=== PATIENT | female | born 1990 | race Caucasian/White ===

== ENCOUNTER 2020-04-10 12:55 | Emergency (ER) | payer OTHER ==
[~2020-04-10] VITALS: Ht 167.6 cm; Wt 108.9 kg
[2020-04-10] MEDS ORDERED: BUSPIRONE HCL7.5 MG PO (13:31)
[2020-04-10] MEDS ORDERED: PREDNISONE 20 M20 MG PO (14:23)
[2020-04-10 15:26] VITALS: BP 158/107
== END 2020-04-10 15:34 | disposition home or self-care (01) ==
LOC: ER 12:55
DX: J02.0 Streptococcal pharyngitis (principal); Z79.899 Other long term (current) drug therapy; Z88.8 Allergy status to other drugs, medicaments and biological substances; Z91.018 Allergy to other foods; Z91.030 Bee allergy status

== ENCOUNTER 2020-05-15 14:35 | Emergency (ER) | payer OTHER ==
[~2020-05-15] VITALS: Ht 167.6 cm; Wt 105.2 kg
[~2020-05-15 14:35] MED LIST: BUSPIRONE HCL7.5 MG PO; PREDNISONE 20 M20 MG PO
[2020-05-15 14:41] VITALS: BP 156/96
== END 2020-05-15 16:01 | disposition home or self-care (01) ==
LOC: ER 14:35
DX: R09.89 Other specified symptoms and signs involving the circulatory and respiratory systems (principal); Z79.899 Other long term (current) drug therapy; Z88.8 Allergy status to other drugs, medicaments and biological substances; Z91.010 Allergy to peanuts; Z91.030 Bee allergy status; Z20.828 Contact with and (suspected) exposure to other viral communicable diseases

== ENCOUNTER 2020-07-07 16:01 | Emergency (ER) | payer OTHER ==
[~2020-07-07] VITALS: Ht 167.6 cm; Wt 108.9 kg
[2020-07-07] MEDS ORDERED: MAGIC MOUTHWASH SWISH&SPIT (17:02)
[2020-07-07] MEDS ORDERED: PREDNISONE 20 M20 MG PO (17:02)
[2020-07-07 17:27] VITALS: BP 146/92
== END 2020-07-07 17:28 | disposition home or self-care (01) ==
LOC: ER 16:01
DX: J02.0 Streptococcal pharyngitis (principal); Z91.030 Bee allergy status; Z91.010 Allergy to peanuts; Z79.899 Other long term (current) drug therapy

== ENCOUNTER 2021-01-17 15:59 | Emergency (ER) | payer OTHER ==
[~2021-01-17] VITALS: Ht 167.6 cm; Wt 106.6 kg
[~2021-01-17 15:59] MED LIST changes: +MAGIC MOUTHWASH SWISH&SPIT
[2021-01-17] MEDS ORDERED: AMOXICILLIN500 M1 PO (17:32)
[2021-01-17 17:47] VITALS: BP 134/74
== END 2021-01-17 17:48 | disposition home or self-care (01) ==
LOC: ER 15:59
DX: J02.9 Acute pharyngitis, unspecified (principal); Z20.822 Contact with and (suspected) exposure to COVID-19; Z91.010 Allergy to peanuts; Z88.8 Allergy status to other drugs, medicaments and biological substances